=== PATIENT | female | born 1960 | race Two or more races ===

== ENCOUNTER 2020-04-15 21:25 | Inpatient (IN) | payer OTHER ==
[2020-04-15] MEDS ORDERED: LACTATED RINGERS SOLUTION 1000 ML INFUS.BAG IV ONE (22:15)
[2020-04-15] MEDS ORDERED: ACETAMINOPHEN 1000 MG/100 ML VIAL (NON FORMULARY) IVPB ONE (22:15)
[2020-04-15] MEDS ORDERED: DEXAMETHASONE SOD PHOSPHATE 4 MG/1 ML VIAL IVPUSH ONE (22:15)
[2020-04-15] MEDS ORDERED: DEXAMETHASONE SOD PHOSPHATE 10 MG/1 ML VIAL ONE (22:55)
[2020-04-15] MEDS ORDERED: ACETAMINOPHEN INJECTION 100 ML IVPB ONE (22:55)
[2020-04-15 23:09] LABS: BASO % 0.2 % (0-2.0); EOS % 0.1 % (0-4.5); HEMATOCRIT 36.1 % (32.4-45.2); HEMOGLOBIN 12.2 GM/dL (10.7-15.3); LYMPH % 21.5 % (8-40); MCH 32.2 pg (25.7-33.7); MCHC 33.8 g/dl (32.0-36.0); MEAN CELL VOLUME 95.3 fl (80-96); NEUT % 67.2 % (42.8-82.8); PLATELET COUNT 213 K/MM3 (134-434); RBC 3.79 M/mm3 (3.60-5.2); RDW 12.5 % (11.6-15.6); WHITE BLOOD COUNT 6.2 K/mm3 (4.0-10.0)
[2020-04-15 23:15] LABS: INR 1.4 (0.83-1.09); PROTHROMBIN TIME (PATIENT) 17.1 SEC (9.7-13.0)
[2020-04-15 23:18] LABS: ACTIVATED PTT 27.5 SECONDS (25.2-36.5)
[2020-04-15 23:26] LABS: CHLORIDE 102 mmol/L (98-107); SODIUM 136 mmol/L (136-145)
[2020-04-15 23:28] LABS: ALBUMIN 3.4 g/dl (3.4-5.0); CALCIUM 8.6 mg/dL (8.5-10.1)
[2020-04-15 23:30] LABS: CO2 28 mmol/L (21-32); GLUCOSE,RANDOM 206 mg/dL (74-106); MAGNESIUM 1.9 mg/dL (1.8-2.4)
[2020-04-15 23:32] LABS: SGOT/AST 51 U/L (15-37); SGPT/ALT 51 U/L (13-61)
[2020-04-15 23:33] LABS: BILIRUBIN,TOTAL 0.8 mg/dL (0.2-1); LDH 264 U/L (84-246); TOT PROT 8.4 g/dl (6.4-8.2)
[2020-04-15 23:34] LABS: ALK PHOS 74 U/L (45-117)
[2020-04-15 23:37] LABS: N-TERMINAL BNP < 5.0 pg/ml (5-125)
[2020-04-15] MEDS ORDERED: ONDANSETRON 4 MG/2 ML VIAL IVPUSH ONE (23:45)
[2020-04-15] MEDS ORDERED: FAMOTIDINE 20 MG/50 ML IVPB 20 MG/50 ML MG IVPB ONE (23:45)
[2020-04-15] MEDS ORDERED: guaiFENesin 200 MG/10 ML 10 ML UNIT-DOSE CUPS PO ONE (23:45)
[2020-04-16] MEDS ORDERED: guaiFENesin/D-METHORPHAN HB 10 ML UNIT-DOSE CUPS ONE (00:32)
[2020-04-16] MEDS ORDERED: ONDANSETRON 4 MG/2 ML VIAL ONE (00:32)
[2020-04-16] MEDS ORDERED: FAMOTIDINE 20 MG/50 ML IVPB 20 MG/50 ML MG IVPB ONE (00:33)
[2020-04-16 01:24] LABS: ANION GAP 7 MMOL/L (8-16); BLOOD UREA NITROGEN 12.4 mg/dL (7-18); CREATININE 0.8 mg/dL (0.55-1.3); POTASSIUM 4.1 mmol/L (3.5-5.1)
[2020-04-16] MEDS ORDERED: ONDANSETRON 4 MG/2 ML VIAL IVPUSH PRN (02:13)
[2020-04-16] MEDS ORDERED: guaiFENesin 200 MG/10 ML 10 ML UNIT-DOSE CUPS PO ONE (04:01)
[2020-04-16 04:28] VITALS: BMI 27.9
[2020-04-16] MEDS: INSULIN SLIDING SCALE (NOVOLOG) 1 VIAL SQ SCH ×4 (06:02→23:19)
[2020-04-16] MEDS ORDERED: ALBUTEROL SO4 HFA INHALER IH PRN (06:22)
[2020-04-16 07:00] LABS: POTASSIUM 4.5 mmol/L (3.5-5.1)
[2020-04-16 07:04] LABS: ALBUMIN 3.1 g/dl (3.4-5.0); BLOOD UREA NITROGEN 13.8 mg/dL (7-18); CALCIUM 8.4 mg/dL (8.5-10.1)
[2020-04-16 07:07] LABS: CREATININE 0.7 mg/dL (0.55-1.3)
[2020-04-16 07:08] LABS: PHOSPHOROUS 4.3 mg/dL (2.5-4.9)
[2020-04-16 07:09] LABS: BILIRUBIN,TOTAL 0.8 mg/dL (0.2-1); TOT PROT 8.1 g/dl (6.4-8.2)
[2020-04-16 07:20] LABS: BASO % 0.2 % (0-2.0); HEMATOCRIT 34.8 % (32.4-45.2); HEMOGLOBIN 11.7 GM/dL (10.7-15.3); LYMPH % 23.9 % (8-40); MCH 32.2 pg (25.7-33.7); MCHC 33.5 g/dl (32.0-36.0); MEAN CELL VOLUME 96.3 fl (80-96); MEAN PLT VOLUME 9.4 fl (7.5-11.1); MONO % 5.5 % (3.8-10.2); NEUT % 70.4 % (42.8-82.8); PLATELET COUNT 208 K/MM3 (134-434); RBC 3.62 M/mm3 (3.60-5.2); RDW 12.7 % (11.6-15.6); WHITE BLOOD COUNT 4.5 K/mm3 (4.0-10.0)
[2020-04-16] MEDS ORDERED: PT OWN MED DRAWER 7, Y5N ONE (10:02)
[2020-04-16] MEDS ORDERED: cefTRIAXone SODIUM 1 GM VIAL ONE (10:03)
[2020-04-16] MEDS ORDERED: DEXTROSE 5%-WATER - 50 ML IVPB ONE (10:03)
[2020-04-16] MEDS: DEXAMETHASONE SOD PHOSPHATE 10 MG/1 ML VIAL IVPUSH SCH (10:19)
[2020-04-16] MEDS: CEFTRIAXONE 1 GM in DEXTROSE 5%-WATER - 50 ML IVPB SCH (10:19)
[2020-04-16] MEDS: ENOXAPARIN NA (PORCINE) 40 MG/0.4 ML DISP.SYRIN SQ SCH (10:20)
[2020-04-16] MEDS: ZINC SULFATE 220 MG CAPSULE (FP) PO SCH (10:20)
[2020-04-16] MEDS: AZITHROMYCIN IVPB 500 MG/250 ML BAG IVPB SCH (10:21)
[2020-04-16] MEDS: ASCORBIC ACID 250 MG TABLET (FP) PO SCH (10:23)
[2020-04-16] MEDS ORDERED: REMDESIVIR 200 MG in SODIUM CHLORIDE 210 ML IVPB ONE (13:00)
[2020-04-16] MEDS: CHOLECALCIFEROL (VIT D3) 400 UNIT (10 MCG) TABLET PO SCH (13:05)
[2020-04-16] MEDS: ACETAMINOPHEN 325 MG TABLET (FP) PO PRN ×2 (18:20→23:56)
[2020-04-16] MEDS: guaiFENesin/CODEINE 5 ML UNIT-DOSE CUPS PO PRN (20:51)
[2020-04-16] MEDS: INSULIN (LEVEMIR) 100 UNITS/ML UNITS SQ SCH (23:22)
[2020-04-17] MEDS: INSULIN (LEVEMIR) 100 UNITS/ML UNITS SQ SCH ×2 (07:23→21:23)
[2020-04-17] MEDS: INSULIN SLIDING SCALE (NOVOLOG) 1 VIAL SQ SCH ×4 (07:24→21:22)
[2020-04-17 08:22] LABS: HEMATOCRIT 33.1 % (32.4-45.2); HEMOGLOBIN 11.3 GM/dL (10.7-15.3); MCH 32.5 pg (25.7-33.7); MCHC 34.1 g/dl (32.0-36.0); MEAN CELL VOLUME 95.2 fl (80-96); MEAN PLT VOLUME 9.2 fl (7.5-11.1); PLATELET COUNT 220 K/MM3 (134-434); RBC 3.47 M/mm3 (3.60-5.2); RDW 12.6 % (11.6-15.6); WHITE BLOOD COUNT 9.6 K/mm3 (4.0-10.0)
[2020-04-17] MEDS ORDERED: DEXTROSE 5%-WATER - 50 ML IVPB ONE (08:48)
[2020-04-17] MEDS ORDERED: cefTRIAXone SODIUM 1 GM VIAL ONE (08:48)
[2020-04-17 08:51] LABS: POTASSIUM 3.7 mmol/L (3.5-5.1)
[2020-04-17 08:53] LABS: CALCIUM 8.2 mg/dL (8.5-10.1)
[2020-04-17 08:54] LABS: BLOOD UREA NITROGEN 14.7 mg/dL (7-18)
[2020-04-17 08:57] LABS: CREATININE 0.7 mg/dL (0.55-1.3)
[2020-04-17 08:59] LABS: BILIRUBIN,TOTAL 0.7 mg/dL (0.2-1); TOT PROT 7.6 g/dl (6.4-8.2)
[2020-04-17] MEDS: CEFTRIAXONE 1 GM in DEXTROSE 5%-WATER - 50 ML IVPB SCH (09:13)
[2020-04-17] MEDS: ACETAMINOPHEN 325 MG TABLET (FP) PO PRN (09:14)
[2020-04-17] MEDS: CHOLECALCIFEROL (VIT D3) 400 UNIT (10 MCG) TABLET PO SCH (09:32)
[2020-04-17] MEDS: ENOXAPARIN NA (PORCINE) 40 MG/0.4 ML DISP.SYRIN SQ SCH (09:32)
[2020-04-17] MEDS: DEXAMETHASONE SOD PHOSPHATE 10 MG/1 ML VIAL IVPUSH SCH (10:00)
[2020-04-17] MEDS: AZITHROMYCIN IVPB 500 MG/250 ML BAG IVPB SCH (10:00)
[2020-04-17] MEDS: ZINC SULFATE 220 MG CAPSULE (FP) PO SCH (10:14)
[2020-04-17] MEDS: FAMOTIDINE 20 MG/50 ML IVPB 20 MG/50 ML MG IVPB SCH (12:11)
[2020-04-17] MEDS: ASCORBIC ACID 250 MG TABLET (FP) PO SCH (12:13)
[2020-04-17] MEDS: REMDESIVIR 100 MG in SODIUM CHLORIDE 230 ML IVPB SCH (13:00)
[2020-04-17] MEDS: guaiFENesin/CODEINE 5 ML UNIT-DOSE CUPS PO PRN (17:37)
[2020-04-18] MEDS: INSULIN (LEVEMIR) 100 UNITS/ML UNITS SQ SCH ×2 (06:30→21:19)
[2020-04-18] MEDS: INSULIN SLIDING SCALE (NOVOLOG) 1 VIAL SQ SCH ×4 (06:30→21:20)
[2020-04-18] MEDS ORDERED: INSULIN (NOVOLOG) ASPART 100 UNITS/ML 10ML VIAL ONE ×2 (07:41→10:51)
[2020-04-18 09:15] LABS: HEMATOCRIT 32.7 % (32.4-45.2); HEMOGLOBIN 10.9 GM/dL (10.7-15.3); MCH 31.9 pg (25.7-33.7); MCHC 33.3 g/dl (32.0-36.0); MEAN PLT VOLUME 9.1 fl (7.5-11.1); PLATELET COUNT 252 K/MM3 (134-434); RBC 3.41 M/mm3 (3.60-5.2); RDW 12.7 % (11.6-15.6); WHITE BLOOD COUNT 8.8 K/mm3 (4.0-10.0)
[2020-04-18 09:54] LABS: POTASSIUM 3.9 mmol/L (3.5-5.1)
[2020-04-18 09:56] LABS: ALBUMIN 2.9 g/dl (3.4-5.0); BLOOD UREA NITROGEN 15.2 mg/dL (7-18); CALCIUM 8.5 mg/dL (8.5-10.1)
[2020-04-18 10:00] LABS: CREATININE 0.5 mg/dL (0.55-1.3)
[2020-04-18 10:01] LABS: BILIRUBIN,TOTAL 1.2 mg/dL (0.2-1); TOT PROT 7.7 g/dl (6.4-8.2)
[2020-04-18] MEDS ORDERED: cefTRIAXone SODIUM 1 GM VIAL ONE (10:51)
[2020-04-18] MEDS ORDERED: DEXTROSE 5%-WATER - 50 ML IVPB ONE (10:51)
[2020-04-18] MEDS: ENOXAPARIN NA (PORCINE) 40 MG/0.4 ML DISP.SYRIN SQ SCH (11:00)
[2020-04-18] MEDS: CEFTRIAXONE 1 GM in DEXTROSE 5%-WATER - 50 ML IVPB SCH (11:01)
[2020-04-18] MEDS: FAMOTIDINE 20 MG/50 ML IVPB 20 MG/50 ML MG IVPB SCH (11:01)
[2020-04-18] MEDS: ZINC SULFATE 220 MG CAPSULE (FP) PO SCH (11:01)
[2020-04-18] MEDS: DEXAMETHASONE SOD PHOSPHATE 10 MG/1 ML VIAL IVPUSH SCH (11:01)
[2020-04-18] MEDS: ASCORBIC ACID 250 MG TABLET (FP) PO SCH (11:01)
[2020-04-18] MEDS: CHOLECALCIFEROL (VIT D3) 400 UNIT (10 MCG) TABLET PO SCH (11:01)
[2020-04-18] MEDS: REMDESIVIR 100 MG in SODIUM CHLORIDE 230 ML IVPB SCH (12:56)
[2020-04-18] MEDS: guaiFENesin/CODEINE 5 ML UNIT-DOSE CUPS PO PRN (13:07)
[2020-04-19] MEDS: guaiFENesin/CODEINE 5 ML UNIT-DOSE CUPS PO PRN (01:09)
[2020-04-19] MEDS: INSULIN (LEVEMIR) 100 UNITS/ML UNITS SQ SCH ×2 (06:12→21:32)
[2020-04-19] MEDS: INSULIN SLIDING SCALE (NOVOLOG) 1 VIAL SQ SCH ×4 (06:12→21:31)
[2020-04-19] MEDS ORDERED: PT OWN MED DRAWER 7, Y5N ONE (07:01)
[2020-04-19 08:34] LABS: HEMATOCRIT 32.5 % (32.4-45.2); MCH 32.6 pg (25.7-33.7); MCHC 33.9 g/dl (32.0-36.0); MEAN PLT VOLUME 9.2 fl (7.5-11.1); PLATELET COUNT 268 K/MM3 (134-434); RBC 3.39 M/mm3 (3.60-5.2); RDW 12.4 % (11.6-15.6); WHITE BLOOD COUNT 7.3 K/mm3 (4.0-10.0)
[2020-04-19 08:40] LABS: POTASSIUM 4.1 mmol/L (3.5-5.1)
[2020-04-19 08:44] LABS: BLOOD UREA NITROGEN 15.1 mg/dL (7-18)
[2020-04-19 08:45] LABS: CALCIUM 8.6 mg/dL (8.5-10.1)
[2020-04-19 08:46] LABS: ALBUMIN 2.7 g/dl (3.4-5.0)
[2020-04-19 08:48] LABS: CREATININE 0.6 mg/dL (0.55-1.3)
[2020-04-19 08:49] LABS: BILIRUBIN,TOTAL 0.8 mg/dL (0.2-1); TOT PROT 7.2 g/dl (6.4-8.2)
[2020-04-19] MEDS ORDERED: cefTRIAXone SODIUM 1 GM VIAL ONE (10:53)
[2020-04-19] MEDS ORDERED: DEXTROSE 5%-WATER - 50 ML IVPB ONE (10:53)
[2020-04-19] MEDS: FAMOTIDINE 20 MG/50 ML IVPB 20 MG/50 ML MG IVPB SCH (10:57)
[2020-04-19] MEDS: CEFTRIAXONE 1 GM in DEXTROSE 5%-WATER - 50 ML IVPB SCH (10:57)
[2020-04-19] MEDS: CHOLECALCIFEROL (VIT D3) 400 UNIT (10 MCG) TABLET PO SCH (10:58)
[2020-04-19] MEDS: ZINC SULFATE 220 MG CAPSULE (FP) PO SCH (10:58)
[2020-04-19] MEDS: DEXAMETHASONE SOD PHOSPHATE 10 MG/1 ML VIAL IVPUSH SCH (10:58)
[2020-04-19] MEDS: ENOXAPARIN NA (PORCINE) 40 MG/0.4 ML DISP.SYRIN SQ SCH (10:58)
[2020-04-19] MEDS: ASCORBIC ACID 250 MG TABLET (FP) PO SCH (10:59)
[2020-04-19] MEDS: REMDESIVIR 100 MG in SODIUM CHLORIDE 230 ML IVPB SCH (13:58)
[2020-04-20] MEDS: INSULIN (LEVEMIR) 100 UNITS/ML UNITS SQ SCH ×2 (05:59→22:04)
[2020-04-20] MEDS: INSULIN SLIDING SCALE (NOVOLOG) 1 VIAL SQ SCH ×4 (05:59→22:03)
[2020-04-20 07:44] LABS: BASO % 0.1 % (0-2.0); EOS % 0.1 % (0-4.5); HEMATOCRIT 33.7 % (32.4-45.2); HEMOGLOBIN 11.3 GM/dL (10.7-15.3); LYMPH % 23.5 % (8-40); MCH 32.3 pg (25.7-33.7); MCHC 33.6 g/dl (32.0-36.0); MEAN CELL VOLUME 96.3 fl (80-96); MEAN PLT VOLUME 8.8 fl (7.5-11.1); MONO % 9.1 % (3.8-10.2); NEUT % 67.2 % (42.8-82.8); PLATELET COUNT 366 K/MM3 (134-434); RDW 12.5 % (11.6-15.6); WHITE BLOOD COUNT 8.5 K/mm3 (4.0-10.0)
[2020-04-20 07:53] LABS: POTASSIUM 4.3 mmol/L (3.5-5.1)
[2020-04-20 07:57] LABS: ALBUMIN 2.9 g/dl (3.4-5.0); BLOOD UREA NITROGEN 16.7 mg/dL (7-18); CALCIUM 8.8 mg/dL (8.5-10.1); MAGNESIUM 2.1 mg/dL (1.8-2.4)
[2020-04-20 08:00] LABS: CREATININE 0.6 mg/dL (0.55-1.3)
[2020-04-20 08:01] LABS: PHOSPHOROUS 3.4 mg/dL (2.5-4.9)
[2020-04-20 08:02] LABS: BILIRUBIN,TOTAL 0.9 mg/dL (0.2-1); TOT PROT 7.6 g/dl (6.4-8.2)
[2020-04-20] MEDS ORDERED: DEXTROSE 5%-WATER - 50 ML IVPB ONE (08:59)
[2020-04-20] MEDS ORDERED: cefTRIAXone SODIUM 1 GM VIAL ONE (08:59)
[2020-04-20] MEDS: ZINC SULFATE 220 MG CAPSULE (FP) PO SCH (09:03)
[2020-04-20] MEDS: DEXAMETHASONE SOD PHOSPHATE 10 MG/1 ML VIAL IVPUSH SCH (09:03)
[2020-04-20] MEDS: CEFTRIAXONE 1 GM in DEXTROSE 5%-WATER - 50 ML IVPB SCH (09:03)
[2020-04-20] MEDS: ENOXAPARIN NA (PORCINE) 40 MG/0.4 ML DISP.SYRIN SQ SCH (09:03)
[2020-04-20] MEDS: ASCORBIC ACID 250 MG TABLET (FP) PO SCH (09:04)
[2020-04-20] MEDS: CHOLECALCIFEROL (VIT D3) 400 UNIT (10 MCG) TABLET PO SCH (09:04)
[2020-04-20] MEDS: FAMOTIDINE 20 MG/50 ML IVPB 20 MG/50 ML MG IVPB SCH (10:23)
[2020-04-20] MEDS: REMDESIVIR 100 MG in SODIUM CHLORIDE 230 ML IVPB SCH (13:09)
[2020-04-21] MEDS: guaiFENesin/CODEINE 5 ML UNIT-DOSE CUPS PO PRN (05:32)
[2020-04-21] MEDS: INSULIN SLIDING SCALE (NOVOLOG) 1 VIAL SQ SCH ×3 (06:08→17:12)
[2020-04-21] MEDS: INSULIN (LEVEMIR) 100 UNITS/ML UNITS SQ SCH (06:08)
[2020-04-21] MEDS ORDERED: PT OWN MED DRAWER 7, Y5N ONE (10:54)
[2020-04-21] MEDS: ASCORBIC ACID 250 MG TABLET (FP) PO SCH (11:20)
[2020-04-21] MEDS: CHOLECALCIFEROL (VIT D3) 400 UNIT (10 MCG) TABLET PO SCH (11:21)
[2020-04-21] MEDS: DEXAMETHASONE SOD PHOSPHATE 10 MG/1 ML VIAL IVPUSH SCH (11:21)
[2020-04-21] MEDS: FAMOTIDINE 20 MG/50 ML IVPB 20 MG/50 ML MG IVPB SCH (11:21)
[2020-04-21] MEDS: ZINC SULFATE 220 MG CAPSULE (FP) PO SCH (11:21)
[2020-04-21] MEDS: ENOXAPARIN NA (PORCINE) 40 MG/0.4 ML DISP.SYRIN SQ SCH (11:21)
[2020-04-21 20:49] VITALS: BP 128/72; PULSE 59; TEMP 98.8
== END 2020-04-21 20:51 | disposition home or self-care (01) | DRG 177 ==
LOC: JER 21:25 → JERBED 22:39 → J7W 04-16 03:44
PROVIDERS: ADMIT Internal Medicine; ATTEND Internal Medicine
PROC: XW033E5 Introduction of Remdesivir Anti-infective into Peripheral Vein, Percutaneous Approach, New Technology Group 5 (ICD-10-PCS; principal; 2020-04-17)
PROC: XW13325 Transfusion of Convalescent Plasma (Nonautologous) into Peripheral Vein, Percutaneous Approach, New Technology Group 5 (ICD-10-PCS; 2020-04-17)
DX: U07.1 COVID-19 (principal); J96.01 Acute respiratory failure with hypoxia; J12.82 Pneumonia due to coronavirus disease 2019; E11.9 Type 2 diabetes mellitus without complications; E78.5 Hyperlipidemia, unspecified; E66.9 Obesity, unspecified; Z68.28 Body mass index [BMI] 28.0-28.9, adult
CPT/HCPCS: 36415; 36430; 71045-TC-FY; 80053; 82565; 82728; 82962; 83036; 83615; 83735; 83880; 84100; 84156; 84484; 85025; 85027; 85379; 85610; 85730; 86140; 86850; 86900; 86901; 87804; 93005; 93010; 94761; 97116-GP; 97161-GP; 99285-25; C9399; C9803; J0131; J1100; P9017; U0003